=== PATIENT | female | born 1945 | race Hispanic/Latino ===

== ENCOUNTER 2022-09-26 05:26 | Observation (INO) | payer MEDICARE ==
[~2022-09-26] VITALS: Ht 157.5 cm; Wt 66.2 kg
[2022-09-26 06:01] LABS: BASOPHILS % 0.4 % (0.0-1.0); EOSINOPHILS # (AUTO) 0.4 (0.0-0.4); EOSINOPHILS % 6.9 % (0.0-6.0); HEMATOCRIT 28.5 % (34.2-44.1); HEMOGLOBIN 8.9 g/dL (12.0-16.0); LYMPHOCYTES # (AUTO) 1.5 (1.0-3.2); LYMPHOCYTES % 25.6 % (18.0-39.1); MEAN CORPUSCULAR HEMOGLOBIN 29.6 pg (28-32); MEAN CORPUSCULAR HGB CONC 31.2 g/dL (31-35); MEAN CORPUSCULAR VOLUME 94.7 fL (81-99); MONOCYTES # (AUTO) 0.4 (0.2-0.8); MONOCYTES % 6.5 % (4.4-11.3); NEUTROPHILS # (AUTO) 3.4 (2.1-6.9); NEUTROPHILS % 60.4 % (38.7-80.0); PLATELET COUNT 153 x10e3/uL (140-360); RED BLOOD COUNT 3.01 x10e6/uL (3.6-5.1); RED CELL DISTRIBUTION WIDTH 13.5 % (11.7-14.4)
[2022-09-26 06:24] LABS: ALBUMIN 3.3 g/dL (3.5-5.0); ALBUMIN/GLOBULIN RATIO 1.2 (0.8-2.0); ANION GAP 14.9 mmol/L (8-16); CALCIUM 8.4 mg/dL (8.4-10.2); CREATININE, SERUM 6.67 mg/dL (0.57-1.11); POTASSIUM 4.9 mmol/L (3.5-5.1)
[2022-09-26] MEDS ORDERED: HYDRALAZINE HCL 20 MG/ML VIAL IV STA (06:58)
[2022-09-26] MEDS ORDERED: SODIUM CHLORIDE 0.9% 1000ML 1,000 ML IV SCH (07:15)
[2022-09-26] MEDS ORDERED: LACTATED RINGER'S 1,000 ML INJ ONE (07:15)
[2022-09-26] MEDS ORDERED: HYDRALAZINE HCL 20 MG/ML VIAL ONE (07:16)
[2022-09-26 08:26] LABS: CLARITY,URINE CLEAR (CLEAR); COLOR,URINE YELLOW (YELLOW); KETONES,URINE NEGATIVE (NEGATIVE); LEUKOCYTE ESTERASE ,URINE NEGATIVE (NEGATIVE); NITRITE,URINE NEGATIVE (NEGATIVE); PROTEIN,URINE DIPSTICK >=300 (NEGATIVE); URINE UROBILINOGEN 0.2 mg/dL (0.2 - 1)
[2022-09-26 08:38] LABS: BACTERIA,URINE RARE /HPF; EPITHELIAL CELLS,URINE FEW /LPF; RBC,URINE 0-5 /HPF (0-5)
[2022-09-26 09:20] VITALS: BP_SYST 227; BP_DIAS 70; BP_DIAS 71
[2022-09-26] MEDS ORDERED: GLYNASE3 MG PO (09:51)
[2022-09-26] MEDS ORDERED: ASPIRIN EC81 MG PO (09:51)
[2022-09-26] MEDS ORDERED: PRAVASTATIN SOD40 MG PO (09:51)
[2022-09-26] MEDS ORDERED: VASOTEC10 M1 PO (09:51)
[2022-09-26 09:54] VITALS: BP 227/71
[2022-09-26] MEDS ORDERED: POLYETHYLENE GLYCOL 3350 17 GM PACK PO PRN (10:45)
[2022-09-26] MEDS ORDERED: ONDANSETRON HCL INJ 2MG/ML 2ML 2 MG/ML VIAL IV PRN (10:45)
[2022-09-26] MEDS ORDERED: ACETAMIN/BUTALBITAL/CAFFEINE TAB PO PRN (11:00)
[2022-09-26] MEDS: HYDRALAZINE HCL 20 MG/ML VIAL IV PRN ×3 (11:06→21:24)
[2022-09-26] MEDS: ACETAMINOPHEN 325 MG TAB PO PRN (11:06)
[2022-09-26 14:05] VITALS: BP 199/67
[2022-09-26] MEDS ORDERED: NIFEDIPINE CR 30 MG TAB PO ONE (15:15)
[2022-09-26] MEDS: DOCUSATE SODIUM 100 MG CAP PO SCH (15:53)
[2022-09-26] MEDS: FAMOTIDINE 20 MG TAB PO SCH (15:53)
[2022-09-26 16:35] VITALS: BP 209/70
[2022-09-26 20:00] VITALS: BP 171/66
[2022-09-26] MEDS: SIMVASTATIN 20 MG TAB PO SCH (21:24)
[2022-09-26 21:44] VITALS: BP 171/66
[2022-09-27] VITALS (8 sets, daily range): BP systolic 132–181; BP diastolic 50–65
[2022-09-27 05:42] LABS: BASOPHILS % 0.5 % (0.0-1.0); EOSINOPHILS # (AUTO) 0.3 (0.0-0.4); EOSINOPHILS % 4.6 % (0.0-6.0); HEMATOCRIT 25.3 % (34.2-44.1); HEMOGLOBIN 8.3 g/dL (12.0-16.0); LYMPHOCYTES # (AUTO) 1.2 (1.0-3.2); LYMPHOCYTES % 20.1 % (18.0-39.1); MEAN CORPUSCULAR HGB CONC 32.8 g/dL (31-35); MEAN CORPUSCULAR VOLUME 91.3 fL (81-99); MONOCYTES # (AUTO) 0.4 (0.2-0.8); MONOCYTES % 7.4 % (4.4-11.3); NEUTROPHILS # (AUTO) 3.8 (2.1-6.9); NEUTROPHILS % 67.2 % (38.7-80.0); PLATELET COUNT 145 x10e3/uL (140-360); RED BLOOD COUNT 2.77 x10e6/uL (3.6-5.1); RED CELL DISTRIBUTION WIDTH 14.2 % (11.7-14.4)
[2022-09-27 05:55] LABS: CHOL/HDL RATIO 3.7 (3.0-3.6); CREATININE, SERUM 6.52 mg/dL (0.57-1.11)
[2022-09-27 06:19] LABS: THYROID STIMULATING HORMONE 3.585 uIU/mL (0.350-4.940)
[2022-09-27] MEDS: HYDRALAZINE HCL 20 MG/ML VIAL IV PRN ×2 (09:15→14:00)
[2022-09-27] MEDS: FAMOTIDINE 20 MG TAB PO SCH ×2 (10:10→16:53)
[2022-09-27] MEDS: ENALAPRIL MALEATE 10 MG TAB PO SCH (10:10)
[2022-09-27] MEDS: ASPIRIN 81 MG ENTERIC COATED PO SCH (10:11)
[2022-09-27] MEDS: NIFEDIPINE CR 30 MG TAB PO SCH (10:11)
[2022-09-27] MEDS: DOCUSATE SODIUM 100 MG CAP PO SCH ×2 (10:11→16:53)
[2022-09-27] MEDS ORDERED: DEXTROSE 50% SYRINGE 50 ML IV PRN (10:15)
[2022-09-27] MEDS: ACETAMINOPHEN 325 MG TAB PO PRN (11:38)
[2022-09-27] MEDS: INSULIN LISPRO 100 UNIT/1 ML 3ML VIAL SQ SCH ×3 (12:12→21:00)
[2022-09-27 17:31] LABS: ABG HCO3 13 mmol/L (22-26); ABG PCO2 27 mmHg (35-45); ABG PO2 100 mmHg (80-105); ABG TCO2 14
[2022-09-27] MEDS: SODIUM BICARBONATE 650 MG TAB PO SCH (18:12)
[2022-09-27] MEDS: SIMVASTATIN 20 MG TAB PO SCH (21:43)
[2022-09-28] VITALS: BP 153/61
[2022-09-28 04:00] VITALS: BP 172/61
[2022-09-28] MEDS: INSULIN LISPRO 100 UNIT/1 ML 3ML VIAL SQ SCH ×4 (07:30→16:54)
[2022-09-28 07:53] LABS: CALCIUM 8.4 mg/dL (8.4-10.2); CREATININE, SERUM 6.78 mg/dL (0.57-1.11); MAGNESIUM 1.4 MG/DL (1.3-2.1); PHOSPHORUS 4.2 MG/DL (2.3-4.7)
[2022-09-28 08:00] VITALS: BP 143/69
[2022-09-28 08:27] VITALS: BP 143/69
[2022-09-28] MEDS: ASPIRIN 81 MG ENTERIC COATED PO SCH (09:45)
[2022-09-28] MEDS: ENALAPRIL MALEATE 10 MG TAB PO SCH (09:45)
[2022-09-28] MEDS: DOCUSATE SODIUM 100 MG CAP PO SCH ×2 (09:45→16:09)
[2022-09-28] MEDS: FAMOTIDINE 20 MG TAB PO SCH ×2 (09:45→16:09)
[2022-09-28] MEDS: SODIUM BICARBONATE 650 MG TAB PO SCH ×2 (09:45→16:08)
[2022-09-28] MEDS: NIFEDIPINE CR 30 MG TAB PO SCH (10:08)
[2022-09-28 11:26] VITALS: BP 172/54
[2022-09-28] MEDS ORDERED: MAGNESIUM SULFATE 2GM/50ML 100 ML IV ONE (14:45)
[2022-09-28 15:51] VITALS: BP 189/65
[2022-09-28] MEDS ORDERED: Acetamin/Butalbital/Caffeine PO (15:52)
[2022-09-28] MEDS ORDERED: SODIUM BICARBO650 MG PO (15:52)
[2022-09-28] MEDS ORDERED: NIFEDIPINE ER30 M1 PO (15:52)
== END 2022-09-28 20:17 | disposition home or self-care (01) ==
LOC: ER 05:36 → INTOOBSV 07:10 → ERHOLD 07:10 → MED/SURG 09:15
PROVIDERS: ADMIT Internal Medicine; ATTEND Internal Medicine
DX: I16.1 Hypertensive emergency (principal); I12.0 Hypertensive chronic kidney disease with stage 5 chronic kidney disease or end stage renal disease; N18.6 End stage renal disease; Z99.2 Dependence on renal dialysis; E78.5 Hyperlipidemia, unspecified; E11.65 Type 2 diabetes mellitus with hyperglycemia; E11.22 Type 2 diabetes mellitus with diabetic chronic kidney disease; E11.69 Type 2 diabetes mellitus with other specified complication; G93.9 Disorder of brain, unspecified; D63.8 Anemia in other chronic diseases classified elsewhere; E83.42 Hypomagnesemia; E87.20 Acidosis, unspecified; Z99.89 Dependence on other enabling machines and devices; Z91.15 Patient's noncompliance with renal dialysis; Z79.4 Long term (current) use of insulin; Z20.822 Contact with and (suspected) exposure to COVID-19; R51.9 Headache, unspecified
CPT/HCPCS: 36415 ×3; 36600; 70450; 71045; 76770; 80048 ×2; 80053; 80061; 81001; 82088; 82533; 82805; 82948 ×3; 83036; 83735; 83835; 84100; 84244; 84443; 84484; 85025 ×2; 93005; 93976; 94799 ×3; 97116 ×2; 97161; 97530; 99284; G0378 ×3; J0360 ×2; J3475; J7121; U0002